=== PATIENT | female | born 1955 | race Caucasian/White ===

== ENCOUNTER 2017-02-27 18:23 | Emergency (ER) | payer BC, OTHER ==
[2017-02-27 19:10] VITALS: BP 148/61
--- NOTE | 2017-02-27 19:26 | EDM.PDOC ---
ED HPI GENERAL MEDICAL PROBLEM - General Chief Complaint: Fever Stated Complaint: fever Time Seen by Provider: 02/27/17 19:01 Source of Information: Reports: Patient, Family, RN, RN Notes Reviewed History Limitations: Reports: No Limitations - History of Present Illness INITIAL COMMENTS - FREE TEXT/NARRATIVE: Patient presents to the emergency room at [facility] complaining of persistent fever, productive cough, nausea, and lethargy. Patient states her symptoms began a couple of weeks ago. The patient was seen in the clinic yesterday and diagnosed with a sinus infection. The patient states that she was started on Augmentin twice a day. The patient states she has had 3 doses up until now. The patient states that her fevers have been persistent despite using ibuprofen. The patient states she feels very weak. She has not been able to drink adequate amount of water. No close family members or contacts with similar symptoms. Headache Pain Score (Numeric/FACES): 6 - Related Data Allergies Allergy/AdvReac Type Severity Reaction Status Date / Time No Known Allergies Allergy Verified 02/27/17 19:05 Home Meds: Home Meds Amitriptyline [Elavil] 50 mg PO BEDTIME 02/27/17 [History] Amoxicillin/Clavulanate K [Augmentin 500 MG\125 MG] 1 tab PO Q12HR 02/27/17 [ History] Calcium Carb & Citrate/Vit D3 [Citracal + D ER] 1 each PO BID 02/27/17 [History] Chlorthalidone 50 mg PO DAILY 02/27/17 [History] Flaxseed Oil [Flax Oil] 1,000 mg PO DAILY 02/27/17 [History] Lovastatin 20 mg PO BEDTIME 02/27/17 [History] Multivitamin [Multivitamins] 1 cap PO DAILY 02/27/17 [History] Potassium 99 mg PO DAILY 02/27/17 [History] Past Medical History HEENT History: Reports: Impaired Vision Cardiovascular History: Reports: High Cholesterol 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 ED ROS ENT - Review of Systems Review Of Systems: See Below Constitutional: Reports: Fever, Chills, Fatigue, Diaphoresis, Decreased Appetite HEENT: Reports: Ear Pain, Eye Pain, Sinus Problem, Throat Pain Respiratory: Reports: Cough, Sputum. Denies: Shortness of Breath Cardiovascular: Denies: Chest Pain, Palpitations Skin: Reports: No Symptoms Neurological: Reports: Headache. Denies: Dizziness, Numbness, Paresthesia, Tingling ED EXAM, ENT - Physical Exam Exam: See Below Exam Limited By: No Limitations General Appearance: Alert, No Apparent Distress Eye Exam: Bilateral Eye: EOMI, Normal Inspection, PERRL Ears: Normal External Exam, Normal Canal, Normal TMs Nose: Clear Rhinorrhea Mouth/Throat: Dry Mucous Membrane, Pharyngeal Erythema. No: Tonsillar Exudates Neck: Supple Respiratory/Chest: No Respiratory Distress, Decreased Breath Sounds (Right side ; clear on left) Cardiovascular: Regular Rate, Rhythm GI/Abdominal: Normal Bowel Sounds, Soft, Non-Tender Neurological: Alert, Oriented Skin: Warm, Dry, Intact, Normal Color, No Rash Course - Vital Signs Last Recorded V/S: Last Vital Signs Temp 38.8 C H 02/27/17 19:06 Pulse 121 H 02/27/17 19:06 Resp 20 02/27/17 19:06 BP 148/61 H 02/27/17 19:06 Pulse Ox 96 02/27/17 19:06 - Orders/Labs/Meds Orders: Active Orders 24 hr Category Date Time Status Chest 2V [CR] Stat Exams 02/27/17 19:27 Taken CULTURE BLOOD [BC] Stat Lab 02/27/17 19:50 Received CULTURE BLOOD [] Stat Lab 02/27/17 19:56 Received CULTURE STREP A CONFIRMATION [] Stat Lab 02/27/17 20:23 Results STREP SCRN A RAPID W CULT CONF [] Stat Lab 02/27/17 20:23 Results Potassium Chloride [Klor-Con M20] Med 02/27/17 20:50 Once 60 meq PO ONETIME ONE Sodium Chloride 0.9% [Normal Saline] 1,000 ml Med 02/27/17 19:30 Active IV ASDIRECTED Sodium Chloride 0.9% [Saline Flush] Med 02/27/17 19:27 Active 10 ml FLUSH ASDIRECTED PRN Blood Culture x2 Reflex Set [OM.PC] Stat Oth 02/27/17 19:37 Ordered Peripheral IV Insertion Adult [OM.PC] Routine Oth 02/27/17 19:27 Ordered Medication Orders Sodium Chloride (Normal Saline) 1,000 mls @ 999 mls/hr IV ASDIRECTED AIDAN Last Admin: 02/27/17 19:52 Dose: 999 mls/hr Potassium Chloride (Klor-Con M20) 60 meq PO ONETIME ONE Stop: 02/27/17 20:51 Sodium Chloride (Saline Flush) 10 ml FLUSH ASDIRECTED PRN PRN Reason: Keep Vein Open Labs: Laboratory Tests 02/27/17 02/27/17 02/27/17 Range/Units 19:50 19:50 19:50 WBC 6.6 (4.0-10.0) x10^3/uL RBC 5.72 H (4.00-5.50) x10^6/uL Hgb 15.7 (12.0-16.0) g/dL Hct 46.5 (33.0-47.0) % MCV 81.3 (78.0-93.0) fL MCH 27.4 (26.0-32.0) pg MCHC 33.8 (32.0-36.0) g/dL RDW Coeff of Alphonse 14.8 (10.0-15.0) % Plt Count 238 (130-400) x10^3/uL Add Manual Diff Yes Neutrophils % (Manual) 79 (50-80) % Band Neutrophils % 8 H (0-6) % Lymphocytes % (Manual) 6 L (25-50) % Atypical Lymphs % 3 H (0) % Monocytes % (Manual) 4 (2-11) % Platelet Estimate Adequate Sodium 138 (136-145) mmol/L Potassium 2.9 L* (3.5-5.1) mmol/L Chloride 98 (98-107) mmol/L Carbon Dioxide 30 (21-32) mmol/L BUN 19 H (7-18) mg/dL Creatinine 1.2 H (0.55-1.02) mg/dL Est Cr Clr Drug Dosing 37.62 mL/min Estimated GFR (MDRD) 46 Glucose 105 (74-106) mg/dL Lactic Acid 1.7 (0.4-2.0) mmol/L Calcium 9.2 (8.5-10.1) mg/dL C-Reactive Protein 13.7 H (<=0.9) mg/dL Meds: Medications Generic Name Dose Route Start Last Admin Trade Name Joseq PRN Reason Stop Dose Admin Sodium Chloride 1,000 mls @ 999 mls/hr 02/27/17 19:30 02/27/17 19:52 Normal Saline IV 999 mls/hr ASDIRECTED AIDAN Administration Potassium Chloride 60 meq 02/27/17 20:50 Klor-Con M20 PO 02/27/17 20:51 ONETIME ONE Sodium Chloride 10 ml 02/27/17 19:27 Saline Flush FLUSH ASDIRECTED PRN Keep Vein Open Discontinued Medications Generic Name Dose Route Start Last Admin Trade Name Joseq PRN Reason Stop Dose Admin Ketorolac Tromethamine 30 mg 02/27/17 19:28 02/27/17 19:55 Toradol IVPUSH 02/27/17 19:29 30 mg ONETIME ONE Administration Ondansetron HCl 4 mg 02/27/17 19:29 02/27/17 19:53 Zofran IVPUSH 02/27/17 19:30 4 mg ONETIME ONE Administration Departure - Departure Time of Disposition: 20:46 Disposition: Home, Self-Care 01 Condition: good Clinical Impression: Hypokalemia, Dehydration Acute pansinusitis Qualifiers: Recurrence: non-recurrent Qualified Code(s): J01.40 - Acute pansinusitis, unspecified Fever Qualifiers: Fever type: unspecified Qualified Code(s): R50.9 - Fever, unspecified - Discharge Information Instructions: Sinusitis, Adult, Sinus Headache, Fever, Adult, [id number] Forms: ED Department Discharge Additional Instructions: 1. Stay well hydrated and rest 2. Continue taking Augmentin for the full 10 day coarse 3. Chest xray, influenza, and strep tests were all normal 4. Labs showed dehydration and low potassium 5. Alternate Tylenol/Advil for fevers 6. Be patient, fevers and symptoms may progress for the next few days, let antibiotics work 7. See your Primary as symptoms warrant - Problem List Review Problem List Initiated/Reviewed/Updated: Yes - My Orders Last 24 Hours: My Active Orders 02/27/17 19:27 Chest 2V [CR] Stat Sodium Chloride 0.9% [Saline Flush] 10 ml FLUSH ASDIRECTED PRN Peripheral IV Insertion Adult [OM.PC] Routine 02/27/17 19:30 Sodium Chloride 0.9% [Normal Saline] 1,000 ml IV ASDIRECTED 02/27/17 19:37 Blood Culture x2 Reflex Set [OM.PC] Stat 02/27/17 19:50 CULTURE BLOOD [BC] Stat 02/27/17 19:56 CULTURE BLOOD [BC] Stat 02/27/17 20:23 CULTURE STREP A CONFIRMATION [RM] Stat STREP SCRN A RAPID W CULT CONF [RM] Stat 02/27/17 20:50 Potassium Chloride [Klor-Con M20] 60 meq PO ONETIME ONE - Assessment/Plan Last 24 Hours: My Active Orders 02/27/17 19:27 Chest 2V [CR] Stat Sodium Chloride 0.9% [Saline Flush] 10 ml FLUSH ASDIRECTED PRN Peripheral IV Insertion Adult [OM.PC] Routine 02/27/17 19:30 Sodium Chloride 0.9% [Normal Saline] 1,000 ml IV ASDIRECTED 02/27/17 19:37 Blood Culture x2 Reflex Set [OM.PC] Stat 02/27/17 19:50 CULTURE BLOOD [BC] Stat 02/27/17 19:56 CULTURE BLOOD [BC] Stat 02/27/17 20:23 CULTURE STREP A CONFIRMATION [RM] Stat STREP SCRN A RAPID W CULT CONF [RM] Stat 02/27/17 20:50 Potassium Chloride [Klor-Con M20] 60 meq PO ONETIME ONE
[2017-02-27] MEDS ORDERED: Sodium Chloride 0.9% 10 ML Syringe FLUSH PRN (19:27)
[2017-02-27] MEDS ORDERED: Ketorolac 30 MG/ML SDV IVPUSH ONE (19:28)
[2017-02-27] MEDS ORDERED: Ondansetron 4 MG/2 ML SDV IVPUSH ONE (19:29)
[2017-02-27] MEDS ORDERED: Sodium Chloride 0.9% 1,000 ML IV SCH (19:30)
[2017-02-27] MEDS ORDERED: Potassium Chloride 20 MEQ Tab.ER PO ONE (20:50)
== END 2017-02-27 21:05 | disposition home or self-care (01) ==
LOC: VM.ED 18:23
DX: J01.40 Acute pansinusitis, unspecified (principal); E86.0 Dehydration; E87.6 Hypokalemia; Z79.899 Other long term (current) drug therapy; E78.00 Pure hypercholesterolemia, unspecified; G43.909 Migraine, unspecified, not intractable, without status migrainosus; Z96.659 Presence of unspecified artificial knee joint; Z87.891 Personal history of nicotine dependence
CPT/HCPCS: 36415; 71020; 80048; 83605; 85025; 86140; 87040; 87077; 87081; 87804; 87880; 96361; 96374; 96375; 99284; A9270; J1885; J2405; J7030; 87147; 87186